=== PATIENT | male | born 1995 | race Caucasian/White ===

== ENCOUNTER → 2017-04-07 | Day surgery (SDC) | payer OTHER ==
[~2017-04-07] MED LIST: BACITRACIN 50,000 UNIT VIAL ONE; BUPIVACAINE HCL 0.5% 10ML MPF VIAL INJ ONE; CEFAZOLIN SOD 2 GM/D5W 50ML 50 ML IV ONE; DEXAMETHASONE SOD PHOS INJ 4 MG/ML VIAL ONE; FENTANYL CITRATE/PF 100MCG/2 ML INJ ONE; KETOROLAC TROMETHAMINE 30 MG/ML VIAL ONE; LIDOCAINE 2% /EPINEPHRINE 20 ML SDV INJ ONE; LIDOCAINE HCL 2% LOCAL INJ 5 ML SDV VIAL INJ ONE; MIDAZOLAM HCL 2 MG/2 ML VIAL ONE; ONDANSETRON HCL INJ 2 MG/ML VIAL ONE; PROPOFOL IV EMULSION 10 MG/ML 20 ML VIAL ONE; ROCURONIUM BROMIDE 10 MG/ML 5ML VIAL ONE; ROPIVACAINE 0.5% 5 MG/ML 30 ML SDV ONE; SEVOFLURANE INHAL SOLN 250 ML PEN BTL ONE; ULTRAM 50MG50 MG PO
--- NOTE | 2017-04-07 11:02 | Operative Report ---
DATE OF PROCEDURE: April 07, 2017 PREOPERATIVE DIAGNOSIS: Displaced left olecranon fracture. POSTOPERATIVE DIAGNOSIS: Displaced left olecranon fracture. OPERATION/PROCEDURE PERFORMED: The patient underwent an open reduction internal fixation of the left olecranon fracture with a tension band technique. MARKETING INFORMATION COORDINATOR: Cherry Marie. ANESTHESIA: General endotracheal intubation anesthesia. IV FLUIDS: Per the anesthesia record. BRIEF DESCRIPTION OF THE PATIENT'S OPERATIVE PROCEDURE: Mr. Little was taken to the operating room and placed in the supine position on the operating table. Following induction of general anesthesia, as well as endotracheal intubation, the patient's left upper extremity was examined under anesthesia. He was found to have bruising and ecchymosis involving the left elbow. The patient was turned into a lateral position, and held in place with well-padded ho bag. An axillary roll was placed on the right chest wall, and his bilateral lower extremities were also well-padded at this time. The patient's upper extremity was then prepped and draped in a standard surgical fashion. The case was begun by creating an incision in a curvilinear fashion over the left olecranon. This incision was carried through skin only. Blunt dissection used to deepen the incision to the level of the triceps fascia and the fascial surfaces of the forearm musculature. The fracture site was easily identified. It was thoroughly irrigated and cleaned. The soft tissues were elevated around the fracture site, both over the ulnar shaft, as well as over the olecranon fragment. The fracture was then reduced and held in place with a fracture reduction clamp. Two 0.062 K-wires were inserted from distal to proximal transfixing the fracture in its reduced position. Position of those K-wires were checked using fluoroscopy and found to be appropriate. A drill hole was created in the ulna shaft. An 18-gauge wire was passed through the drill hole and then woven about the fracture site. A 16-gauge Angiocath allowed passing of the 18-gauge wire beneath the K-wires. The 18-gauge wire was then tensioned appropriately. The elbow was placed through a range of motion and found to remain reduced. Fluoroscopic evaluation demonstrated acceptable alignment of the patient's fracture, as well as positioning of the hardware. The wound was copiously irrigated. The soft tissues were closed in a multilayer fashion. The skin was closed with skin melva. Sterile dressings were applied, as well as a well-padded posterior splint. The patient was then awakened and taken to the postanesthesia care in stable condition. Cherry Marie acted as business office assistant for this case and was necessary both prepping and draping the patient, as well as retraction of soft tissues that allowed this case to be successful. Job#: [id number] VENITA
== END | disposition home or self-care (01) ==
LOC: OR 05:11
PROVIDERS: ATTEND Specialist
DX: S52.032A Displaced fracture of olecranon process with intraarticular extension of left ulna, initial encounter for closed fracture (principal); J45.909 Unspecified asthma, uncomplicated; V86.59XA Driver of other special all-terrain or other off-road motor vehicle injured in nontraffic accident, initial encounter; Y93.I9 Activity, other involving external motion; Z01.810 Encounter for preprocedural cardiovascular examination
CPT/HCPCS: 24685; 93005; J1100; J1885; J2001 ×2; J2250; J2405; J2795; 76001